=== PATIENT | male | born 1955 | race Caucasian/White ===

== ENCOUNTER 2024-02-21 13:40 | Outpatient (OUT) | payer MEDICARE, SELFPAY ==
--- NOTE | 2024-02-21 14:44 | PM.PRESUREVA ---
History of Present Illness History of Present Illness Chief complaint: uretheral errosion, retention Narrative: Patient presents for preadmission testing accompanied by his . Please see HPI from Dr. Elaine dated 02/14/2024. Review of Systems ROS Narrative Please see ROS from Dr. Elaine dated 02/14/2024. [facility] Medical History (Updated 02/21/24 @ 14:18 by Yamileth Ramirez NP) Back pain ?M54.9 - Dorsalgia, unspecified (ICD-10) Arthritis ?M19.90 - Unspecified osteoarthritis, unspecified site (ICD-10) Anemia ?D64.9 - Anemia, unspecified (ICD-10) Depression ?F32.A - Depression, unspecified (ICD-10) Extremity edema ?R60.0 - Localized edema (ICD-10) Congestive heart failure (CHF) ?I50.9 - Heart failure, unspecified (ICD-10) Chronic kidney disease ?N18.9 - Chronic kidney disease, unspecified (ICD-10) Orthopnea ?R06.01 - Orthopnea (ICD-10) Sleep apnea ?G47.30 - Sleep apnea, unspecified (ICD-10) Heartburn ?R12 - Heartburn (ICD-10) Activity intolerance ?R68.89 - Other general symptoms and signs (ICD-10) Dyspnea on exertion ?R06.09 - Other forms of dyspnea (ICD-10) Encounter for incision and drainage procedure ?Z76.89 - Persons encountering health services in other specified circumstances (ICD-10) Suprapubic catheter ?Z93.59 - Other cystostomy status (ICD-10) Urinary retention ?R33.9 - Retention of urine, unspecified (ICD-10) Renal cyst ?N28.1 - Cyst of kidney, acquired (ICD-10) Osteoarthritis ?M19.90 - Unspecified osteoarthritis, unspecified site (ICD-10) Kidney stones ?N20.0 - Calculus of kidney (ICD-10) Hypothyroidism (acquired) ?E03.9 - Hypothyroidism, unspecified (ICD-10) Urinary tract infection ?N39.0 - Urinary tract infection, site not specified (ICD-10) Gross hematuria ?R31.0 - Gross hematuria (ICD-10) Benign prostatic hyperplasia with lower urinary tract symptoms ?N40.1 - Benign prostatic hyperplasia with lower urinary tract symptoms (ICD-10) Asymptomatic microscopic hematuria ?R31.21 - Asymptomatic microscopic hematuria (ICD-10) Anticoagulated ?Z79.01 - keno terminal operator (current) use of anticoagulants (ICD-10) Risk for falls ?Z91.81 - History of falling (ICD-10) Paroxysmal atrial fibrillation ?I48.0 - Paroxysmal atrial fibrillation (ICD-10) Parkinson disease ?G20.A1 - Parkinson's disease without dyskinesia, without mention of fluctuations (ICD-10) Fierro catheter in place ?Z97.8 - Presence of other specified devices (ICD-10) Edema ?R60.9 - Edema, unspecified (ICD-10) Trouble swallowing ?R13.10 - Dysphagia, unspecified (ICD-10) Shortness of breath ?R06.02 - Shortness of breath (ICD-10) Hypertension ?I10 - Essential (primary) hypertension (ICD-10) Hypotension ?I95.9 - Hypotension, unspecified (ICD-10) History of cardioversion ?Z92.89 - Personal history of other medical treatment (ICD-10) Atrial fibrillation ?I48.91 - Unspecified atrial fibrillation (ICD-10) Surgical History (Updated 02/21/24 @ 14:18 by Yamileth Ramirez NP) History of total hip arthroplasty ?Z96.649 - Presence of unspecified artificial hip joint (ICD-10) H/O vein stripping ?Z98.890 - Other specified postprocedural states (ICD-10) Hx of tonsillectomy ?Z90.89 - Acquired absence of other organs (ICD-10) S/P total hip arthroplasty ?Z96.649 - Presence of unspecified artificial hip joint (ICD-10) History of total knee arthroplasty ?Z96.659 - Presence of unspecified artificial knee joint (ICD-10) H/O knee surgery ?Z98.890 - Other specified postprocedural states (ICD-10) H/O cystoscopy ?Z98.890 - Other specified postprocedural states (ICD-10) Family History (Updated 02/21/24 @ 13:53 by Yamileth Ramirez NP) Other Family history of cancer Family history of myocardial infarction Social History (Updated 02/21/24 @ 14:09 by Yamileth Ramirez NP) Within the past year, how often did you have a drink containing alcohol: never Score interpretation: A score less than 4 is consistent with normal alcohol consumption. Smoking status: Never smoker Non-prescribed substance use: denies use Highest level of school completed/degree received: high school graduate Meds Home Medications and Allergies Home Medications ?Medication ?Instructions ?Recorded ?Confirmed ?Type acetaminophen 500 mg tablet 500 mg PO Q6H PRN pain 02/21/24 02/21/24 History apixaban 5 mg tablet (Eliquis) 5 mg PO Q12H 02/21/24 02/21/24 History ascorbic acid (vitamin C) 1,000 mg 1 g PO DAILY 02/21/24 02/21/24 History capsule bumetanide 0.5 mg tablet 0.5 mg PO BID 02/21/24 02/21/24 History candesartan 16 mg tablet 16 mg PO DAILY 02/21/24 02/21/24 History carbidopa 25 mg-levodopa 100 mg 2 tab PO QID 02/21/24 02/21/24 History tablet cranberry 400 mg capsule 400 mg PO BID 02/21/24 02/21/24 History cyanocobalamin (vitamin B-12) 1,000 mcg PO DAILY 02/21/24 02/21/24 History 1,000 mcg tablet dofetilide 250 mcg capsule 250 mcg PO BID 02/21/24 02/21/24 History duloxetine 60 mg capsule,delayed 60 mg PO DAILY 02/21/24 02/21/24 History release entacapone 200 mg tablet 200 mg PO QID 02/21/24 02/21/24 History ergocalciferol (vitamin D2) 1,250 1,250 mcg PO QWEEK 02/21/24 02/21/24 History mcg (50,000 unit) capsule spironolactone 25 mg tablet 25 mg PO DAILY 02/21/24 02/21/24 History vitamins A,C,Q-yteg-jpjktz 2,148 2 tab PO BID 02/21/24 02/21/24 History mcg-113 mg-45 mg-17.4 mg tablet Allergies Allergy/AdvReac Type Severity Reaction Status Date / Time adhesive tape Allergy Rash Verified 02/21/24 13:57 latex Allergy Rash Verified 02/21/24 13:57 Exam Narrative Exam Narrative: Constitutional: Awake, alert, very pleasant, appears uncomfortable, chronically ill-appearing, nontoxic, interactive, vital signs as charted Head: Normocephalic, atraumatic Neck: Supple, normal appearance, limited range of motion, no meningeal signs, no lymphadenopathy Respiratory: No respiratory distress, breath sounds clear Cardiovascular: Regular rate, irregular rhythm Musculoskeletal: sitting in wheelchair, unable to stand or ambulate, 2+ edema bilateral lower extremities Skin: No rashes or induration, no lesions, only visible skin inspected Neuro: upper extremity tremor noted Psychiatric: Oriented ?3, normal affect Assessment and Plan Assessment and Plan (1) Urinary retention: Plan Cystoscopy, suprapubic catheter placement scheduled with Dr. Elaine 03/05/2024.
[2024-02-21 15:05] LABS: BUN Creatinine Ratio 37.5; Calcium 9.5 mg/dL (8.5-10.1); Carbon Dioxide 30.9 mmol/L (21.0-32.0); Chloride 101 mmol/L (98-107); Estimated GFR (African America 55 (>=60); Estimated GFR (Non-African Ame 46 (>=60); Glucose 103 mg/dL (74-106); Potassium 3.9 mmol/L (3.5-5.1); Sodium 139 mmol/L (136-145)
[2024-02-21 15:29] LABS: Basophils Percent Auto 0.5 % (0.2-2.0); Eosinophils Absolute Auto 0.3 10^3/uL (0.0-0.7); Eosinophils Percent Auto 3.3 % (0.9-7.0); Hematocrit 38.2 % (42.0-54.0); Hemoglobin 12.2 g/dL (14.0-18.0); Immature Granulocytes Abs Auto 0.02 10^3/uL (0.00-0.03); Immature Granulocytes Pct Auto 0.2 % (0.0-0.5); Lymphocytes Absolute Auto 0.9 10^3/uL (1.2-3.8); Mean Corpuscular HGB Conc 31.9 g/dL (29.9-35.2); Mean Corpuscular Volume 94.1 fL (80.0-94.0); Mean Platelet Volume 10.4 fL (9.5-13.5); Monocytes Absolute Auto 0.5 10^3/uL (0.3-0.8); Monocytes Percent Auto 5.4 % (1.7-12.0); Neutrophils Absolute Auto 6.7 10^3/uL (1.4-6.5); Neutrophils Percent Auto 79.6 % (43.0-75.0); Platelet Count 214 10^3/uL (150-450); Red Blood Count 4.06 10^6/uL (4.70-6.10); Red Cell Distribution Width 14.2 % (11.0-15.0); White Blood Count 8.4 10^3/uL (4.0-11.0)
[2024-02-21 15:59] LABS: INR 1.05; Partial Thromboplastin Time 33.9 sec (22.3-36.2); Prothrombin Time 11.1 sec (9.0-11.6)
== END 2024-02-21 13:41 | disposition home or self-care (01) ==
LOC: PST 13:40
PROVIDERS: PCP Urology; Visit Provider Urology
DX: Z01.812 Encounter for preprocedural laboratory examination (principal); Z01.818 Encounter for other preprocedural examination; R33.9 Retention of urine, unspecified
CPT/HCPCS: 80048; 85025; 85610; 85730; G0463

== ENCOUNTER 2024-03-05 08:13 | Day surgery (SDC) | payer MEDICARE, SELFPAY ==
[2024-02-21 14:42] VITALS: BP 128/86; PULSE 57; TEMP 36.3; O2SAT 96; BMI 41.6
[2024-03-05] VITALS (17 sets, daily range): BP systolic 102–137; BP diastolic 44–77; PULSE 58–69; TEMP 36.1–37.1; O2SAT 90–98; BMI 41.6
[2024-03-05] MEDS: LACTATED RINGER'S SOLUTION 1,000 ML 50 ML IV ×2 (08:45→10:54)
[2024-03-05] MEDS: CEFAZOLIN SODIUM/DEXTROSE,ISO 1 GM/50 ML IV.SOLN IV (09:33)
[2024-03-05] MEDS: LIDOCAINE HCL 2% 400 MG/20 ML MDV INJ (10:15)
--- NOTE | 2024-03-05 11:14 | P.URON_ITS ---
Urology Surgery Operative Note Operative Note Procedure Date: 03/05/24 Time Out Performed: yes Pre-op Diagnosis: Dislodged suprapubic tube; Chronic urinary retention And significant urethral erosion Post-op Diagnosis: same as pre-op Procedures performed: 1. Cystoscopy. 2. Percutaneous placement of 24 Azerbaijani suprapubic tube Anesthesia: local and General-LMA Primary Surgeon: Dmitry Elaine Complications: None Estimated blood loss (mL): 20 Specimens: None Drains: 24 Azerbaijani suprapubic tube Indications for Procedures: This gentleman has chronic urinary retention and Parkinson's disease. He has had a 22 Azerbaijani suprapubic tube placed by Dr. Hauser several months ago. The home health care nurse had difficulty replacing the tube.Eventually, the patient went to the ER where they also had trouble Replacing the tube.He was seen in the office and I was unable to replace the tube. He now presents for cystoscopy and percutaneous placement of suprapubic tube under anesthesia. Informed consent has been obtained after risks were explained. Detailed description of Procedure: The patient was brought to the operating room and placed on the operating room table in the supine position. SCDs were placed on the lower extremities and turned on and functioning during the entire case. Timeout was done by all parties in the room. We all agreed upon the patient's identification and the planned procedures for this patient. Genn. anesthesia was then administered. The patient was then repositioned into the modified dorsal lithotomy position. All pressure points were satisfactorily padded. Genitalia And abdomen were sterilely prepped and draped in usual fashion.I started by passing a flexible cystoscope per urethra and into the bladder.After the bladder was distended, I could identify the dome. I then palpated suprapubically over the former site of the suprapubic tube. This corresponded to the anterior wall of the bladder near the dome. I then passed a spinal needle through this site and into the bladder. I then used 2% plain lidocaine and infiltrated a wheal in the skin and then deeply in the subcu to the bladder. I then used a 15 blade scalpel and made an incision over the wheel about 3 cm. I then used a hemostat to bluntly dissect down to the bladder. I then passed the spinal needle through the incision into the dome of the bladder. This was left in place as a guide for the Prabhu.The scope was then removed.I then passed the Lowsley through the urethra into the bladder. I then pressed it up to the anterior wall of the bladder. I specifically could feel the tip of the spinal needle thus verifying I was in the exact right spot. The spinal needle was removed. I tented the Lowsley up out of the incision. I then used the Bovie cautery and incised the bladder over the Lowsley and the Lowsley was then able to go through the bladder and out the incision suprapubically.The new 24 Azerbaijani Fierro catheter was then placed in the jaws of the Lowsley and they were closed. I then brought the Lowsley and Fierro into the bladder and released the Fierro from the jaws and then removed the Lowsley. I then irrigated the suprapubic tube to verify that it was within the bladder. 20 cc of fluid was placed in the balloon. I further irrigated out a few clots. Hemostat then clamped to the suprapubic tube. I then passed the scope back in the bladder and inspected the insertion site. There was no active bleeding. The site looked excellent and Near the bladder dome.The scope was then removed. I then closed the deep layers with 3-0 Vicryl in an interrupted fashion. The incision skin was closed with 5-0 nylon in an interrupted fashion. The tube was taped in a curvilinear fashion to the abdomen so as to not allow tension on the insertion site. A leg bag was attached. A sterile dressing was placed over the incision.He was then transferred to a ralturas bed and wheeled to PACU in stable condition. Urinary Catheter Management Urinary Catheter Management Suprapubic: Cath placed during this visit: no
== END 2024-03-05 12:37 | disposition home or self-care (01) ==
PROVIDERS: PCP Urology; Visit Provider Urology
PROC: (CPT 51102; principal; 2024-03-05 09:00)
DX: R33.9 Retention of urine, unspecified (principal); E03.9 Hypothyroidism, unspecified; G20.A1 Parkinson's disease without dyskinesia, without mention of fluctuations; N40.1 Benign prostatic hyperplasia with lower urinary tract symptoms; T83.028A Displacement of other urinary catheter, initial encounter; M19.90 Unspecified osteoarthritis, unspecified site; Z79.01 Long term (current) use of anticoagulants; F32.A Depression, unspecified; I50.9 Heart failure, unspecified; N18.9 Chronic kidney disease, unspecified; G47.30 Sleep apnea, unspecified; Z87.442 Personal history of urinary calculi; Z87.440 Personal history of urinary (tract) infections; R31.0 Gross hematuria; Z91.81 History of falling; I48.0 Paroxysmal atrial fibrillation; I13.0 Hypertensive heart and chronic kidney disease with heart failure and stage 1 through stage 4 chronic kidney disease, or unspecified chronic kidney disease; Z96.649 Presence of unspecified artificial hip joint; Z96.659 Presence of unspecified artificial knee joint; Z79.899 Other long term (current) drug therapy
CPT/HCPCS: 51102; 36415; J1170; J2704